=== PATIENT | female | born 1985 | race Caucasian/White ===

== ENCOUNTER 2017-05-02 15:30 | Outpatient (RCR) | payer OTHER, SELFPAY | END 2017-05-14 23:59 | LOC: NS 15:30 | PROVIDERS: Family Provider Internal Medicine; PCP Internal Medicine; Visit Provider Nurse Practitioner Family | DX: E66.9 Obesity, unspecified (principal); Z68.32 Body mass index [BMI] 32.0-32.9, adult; Z71.3 Dietary counseling and surveillance | CPT/HCPCS: 97803 ==

== ENCOUNTER 2017-05-26 15:56 | Outpatient (RCR) | payer OTHER, SELFPAY | END 2017-06-13 23:59 | LOC: NS 15:56 | PROVIDERS: Family Provider Internal Medicine; PCP Internal Medicine; Visit Provider Nurse Practitioner Family | DX: E66.9 Obesity, unspecified (principal); Z68.32 Body mass index [BMI] 32.0-32.9, adult; Z71.3 Dietary counseling and surveillance | CPT/HCPCS: 97803 ==

== ENCOUNTER → 2017-06-20 16:23 | Outpatient (CLI) | payer OTHER, SELFPAY ==
[2017-06-24 12:06] LABS: HPV Reflexed? NOT INDICATED
== END ==
PROVIDERS: Visit Provider Obstetrics & Gynecology
DX: Z12.4 Encounter for screening for malignant neoplasm of cervix (principal)
CPT/HCPCS: 88175; G0145

== ENCOUNTER 2017-06-30 15:30 | Outpatient (RCR) | payer OTHER, SELFPAY | END 2017-07-14 23:59 | LOC: NS 15:30 | PROVIDERS: Family Provider Internal Medicine; PCP Internal Medicine; Visit Provider Nurse Practitioner Family | DX: E66.9 Obesity, unspecified (principal); Z68.32 Body mass index [BMI] 32.0-32.9, adult; Z71.3 Dietary counseling and surveillance | CPT/HCPCS: 97803 ==

== ENCOUNTER → 2018-04-25 16:36 | Outpatient (CLI) | payer OTHER, SELFPAY ==
[2018-04-25 16:36] VITALS: BMI 32.9
--- NOTE | 2018-04-25 16:39 | RAD_ITS ---
STUDY: X-RAY - RIGHT ANKLE REASON FOR EXAM: Female, 32 years old. Pain, trauma TECHNIQUE: 3 view(s) of the ankle. COMPARISON: None. FINDINGS: There is mild soft tissue edema. There is a 6 mm rounded bony density inferior to the medial malleolus. There is a linear 2 mm small avulsion fracture inferior to the lateral malleolus. This is best seen on the oblique view. There is a accessory ossicle adjacent to the base of the fifth metatarsal. A small bony density adjacent to the navicular likely accessory navicular. RAD/Ankle min 3 Views IMPRESSION: Mild predominantly lateral soft tissue edema 6 mm rounded bony density inferior to the medial malleolus more likely old avulsion fracture and should be correlated clinically Linear 2 mm density inferior to the lateral malleolus best seen on the oblique view likely acute small avulsion fracture Electronically Signed: Bogdan Shipman, at 17:19 EDT Tel , Service support ,
== END ==
PROVIDERS: Family Provider Internal Medicine; PCP Internal Medicine; Referring Provider Physician Assistant Surgical; Visit Provider Physician Assistant Surgical
DX: S96.911A Strain of unspecified muscle and tendon at ankle and foot level, right foot, initial encounter (principal)
CPT/HCPCS: 73610

== ENCOUNTER 2018-05-22 15:30 | Outpatient (RCR) | payer OTHER, SELFPAY ==
[2018-05-08 15:00] VITALS: BMI 32.9
--- NOTE | 2018-05-09 15:59 | HP.PTEVAL_ITS ---
Patient's Visit Information FAROOQ LEE is a 32 year old F referred to Physical Therapy by Deangelo Dillon DO with a diagnosis of R lateral ankle sprain. Date of Evaluation: 05/09/18 Physical Therapist: Perfecto Bowen, PT, ATC - Visit Plan Frequency: 1x/Week Duration: 1 Week Plan: Issue and review HEP of R ankle stretching, strengthening, balance and prorio ex's - Subjective Findings: Pt reports she sprained her ankle 3 weeks ago when trying to catch a child at work. Pt reports she just rolled her R ankle and it popped really loud. Pt reports she had xrays which revealed a tiny little fracture, but mostly just a sprain. Pt reports she is doing much better now and has very little pain. Pt reports she is able to negotiate stairs both at work and school with no difficulty. Pt has sprained her ankle in the past. Pt reports she feels like she is rally almost healed. 0/10 pain at rest, 1/10 pain at worst - Pain R ankle Pain Intensity (Out of 10): 0 Pain Intensity Range: 1 - Objective Neuro: B LE sensation is WNL to light touch. B achilles reflex= 2/3. Palpation: Minor tenderness on tibiocalcaneal ligament. Minor swelling noted. No obvious deformity. ROM: L ankle DF= 4, PF= 65 degrees; R ankle DF= 4, PF= 65. MMT: B ankles are 5/5 throughout with the exception of R ankle Ever= 4+/5. Girth at malleolus line: L ankle 24 cm, R ankle 24.5 cm - Goals Goal 1:: I with HEP Goal Time Frame: 1 Week - Rehabilitation Potential Physical Therapy Diagnosis: R ankle pain from a R lateral ankle sprain Rehabilitation Potential: Excellent - Anticipated Interventions Patient/Client Instruction: Educate patient on: Condition, Plan of Care For the Purpose of:: To improve self management Therapeutic Exercise to Include: Strength training, Endurance training, Balance training, Flexibilty training For the Purpose of:: To decrease pain, To improve muscle performance and motor function Cryotherapy (ice pack, ice massage): Yes For the Purpose of:: To decrease pain Thank you for the opportunity to evaluate your patient. For Medicare and Medicare HMO plans, please review the plan of care and approve it. It will need to be FAXED BACK to us at [phone] for Medicare purposes. For Medicare only, by signing this I certify the plan of care. Please let me know if there are questions or concerns regarding this plan of care. Physician Signature: Date:
--- NOTE | 2018-05-22 15:52 | HP.PTDCSUM ---
HP - PT D/C Summary It has been my pleasure to treat FAROOQ LEE under orders from Deangelo Dillon DO, for the diagnosis of R lateral ankle sprain for a total of 2 visit(s). Discharge Date: Please see the following information for a summary of their discharge status. - Subjective Subjective: No pain this date. Pt is ready for a HEP - Pain R ankle Pain Intensity (Out of 10): 0 - Objective Objective/Function: Pt is now I with HEP - Goals Goal 1:: I with HEP Goal Progress: Goal Met - Plan Plan: Discharge - D/C Information If there are questions or concerns regarding this patient's physical therapy, please feel free to call me at [phone]. Thank you for the referral of this patient. Sincerely, Perfecto Bowen, PT, ATC
== END 2018-05-22 19:00 | disposition home or self-care (01) ==
LOC: PT 15:30
PROVIDERS: Family Provider Internal Medicine; PCP Internal Medicine; Referring Provider Orthopaedic Surgery; Visit Provider Orthopaedic Surgery
DX: S93.491D Sprain of other ligament of right ankle, subsequent encounter (principal)
CPT/HCPCS: 97161; 97530

== ENCOUNTER → 2018-10-24 17:09 | Outpatient (CLI) | payer OTHER, SELFPAY ==
[2018-07-25 14:11] VITALS: BMI 32.9
[2018-10-24 20:22] LABS: Chlamydia Trachomatis by PCR Negative (Negative); Neisserai gonorrhoeae by PCR Negative (Negative); Probe Check PASS; Sample Adequacy Control PASS; Specimen Processing Control PASS
== END ==
PROVIDERS: Family Provider Internal Medicine; PCP Internal Medicine; Referring Provider Obstetrics & Gynecology; Visit Provider Obstetrics & Gynecology
DX: Z11.3 Encounter for screening for infections with a predominantly sexual mode of transmission (principal)
CPT/HCPCS: 87491; 87591

== ENCOUNTER → 2018-11-14 16:24 | Outpatient (CLI) | payer OTHER, SELFPAY ==
[2018-07-25 14:11] VITALS: BMI 32.9
[2018-11-14 18:02] LABS: Absolute Lymphocyte Count 1.69 X10^3/uL (0.83-4.51); Absolute Neutrophil Count 7.1 X10^3/uL (2.0-7.7); Basophil# 0.03 X10^3/uL; Basophil% 0.3 % (0-1); Eosinophil# 0.07 X10^3/uL; Eosinophils% 0.7 % (0-5); Hematocrit 39.6 % (37-47); Lymphocyte # 1.69 X10^3/ul (4.0); Lymphocyte % 17.6 % (19-41); Mean Corp Hgb Conc 32.8 g/dL (32-36); Mean Corpuscular Hgb 29.4 pg (27.0-32.0); Mean Corpuscular Volume 89.6 fL (81-99); Mean Platelet Vol. 10.2 fl (6.2-12.0); Monocyte# 0.64 X10^3/uL; Monocyte% 6.7 % (0-10); NRBC Flagged by Analyzer 0 % (0-5); Neutrophil # 7.11 X10^3/uL (2.7-7.7); Neutrophil % 74.2 % (47-70); Platelet Count 381 K/mm3 (150-450); RBC Distribution Width CV 12.2 % (11.6-14.6); RBC Distribution Width SD 39.7 fl (35.1-43.9); Red Blood Count 4.42 M/mm3 (4.2-5.4); White Blood Count 9.6 K/mm3 (4.4-11.0)
[2018-11-14 18:03] LABS: Color, Urine Yellow (Yellow); Glucose, Dipstick Normal (Normal); Ketone-Dipstick Negative (Negative); Leukocyte Esterase-Dipstick 500 /ul (Negative); Nitrite-Dipstick Negative (Negative); Occult Blood-Urine Negative /ul (Negative); Protein-Dipstick 15 mg/dl (Negative); Specific Gravity, Urine 1.015 (1.002-1.030); Urine Bilirubin Dipstick Negative (Negative); Urine Clarity Sl. Cloudy (Clear); Urine Urobilinogen Normal (Normal)
[2018-11-14 18:22] LABS: Thyroid Stim Hormone (TSH) 0.61 uIU/mL (0.358-3.74)
[2018-11-15 10:15] LABS: HIV - WCH Non-Reactive (Nonreactive); Hepatitis B Surface Antigen Non-Reactive (Nonreactive); Hepatitis C Antibody Non-Reactive (Nonreactive); Rubella IgG 354.6 IU/mL
[2018-11-17 02:41] LABS: Prenatal RPR NONREACTIVE (NONREACTIVE)
== END ==
PROVIDERS: Visit Provider Obstetrics & Gynecology
DX: Z34.81 Encounter for supervision of other normal pregnancy, first trimester (principal)
CPT/HCPCS: 36415; 81002; 84443; 85025; 86703; 86762; 86803; 87340

== ENCOUNTER → 2018-12-12 16:13 | Outpatient (CLI) | payer OTHER, SELFPAY ==
[2018-07-25 14:11] VITALS: BMI 32.9
[2018-12-16 12:06] LABS: Comment Report (.); DIA MoM Value 1.34 (.); DIA Value-EIA 192.65 pg/mL (.); DSR (By Age) 256 (.); DSR (Second Trimester) 94 (.); Gestat. Age Based On As provided (.); Gestational Age 15.3 WEEKS (.); Insulin Dep Diabetes No (.); Maternal Age At EDD 35.7 yr (.); hCG MoM 1.26 (.)
== END ==
PROVIDERS: Visit Provider Obstetrics & Gynecology
DX: Z34.82 Encounter for supervision of other normal pregnancy, second trimester (principal)
CPT/HCPCS: 36415; 82105; 82677; 84702

== ENCOUNTER → 2019-03-05 11:23 | Outpatient (CLI) | payer OTHER, SELFPAY ==
[2018-07-25 14:11] VITALS: BMI 32.9
[2019-03-05 12:28] LABS: Hematocrit 37.5 % (37-47); Hemoglobin 12.1 g/dL (12.0-15.0); Mean Corp Hgb Conc 32.3 g/dL (32-36); Mean Corpuscular Hgb 28.3 pg (27.0-32.0); Mean Corpuscular Volume 87.8 fL (81-99); Mean Platelet Vol. 10.1 fl (6.2-12.0); Platelet Count 366 K/mm3 (150-450); RBC Distribution Width CV 13.2 % (11.6-14.6); RBC Distribution Width SD 42.5 fl (35.1-43.9); Red Blood Count 4.27 M/mm3 (4.2-5.4); White Blood Count 10.6 K/mm3 (4.4-11.0)
[2019-03-05 12:33] LABS: Glucose Challenge Gest 1H 50g 141 mg/dL (70-140)
== END ==
PROVIDERS: Visit Provider Obstetrics & Gynecology
DX: Z34.82 Encounter for supervision of other normal pregnancy, second trimester (principal)
CPT/HCPCS: 36415; 82950; 85027

== ENCOUNTER → 2019-03-08 06:59 | Outpatient (CLI) | payer OTHER, SELFPAY ==
[2018-07-25 14:11] VITALS: BMI 32.9
[2019-03-08 07:35] LABS: Glucose GTT-Gestation. Fasting 102 mg/dL (<105)
[2019-03-08 08:59] LABS: Glucose GTT-Gestational 1 Hr 194 mg/dL (<190)
[2019-03-08 10:20] LABS: Glucose GTT-Gestational 2 Hr 141 mg/dL (<165)
[2019-03-08 11:25] LABS: Glucose GTT-Gestational 3 Hr 76 L (<145)
== END ==
PROVIDERS: PCP Internal Medicine; Referring Provider Obstetrics & Gynecology; Visit Provider Obstetrics & Gynecology
DX: O24.912 Unspecified diabetes mellitus in pregnancy, second trimester (principal); Z3A.00 Weeks of gestation of pregnancy not specified
CPT/HCPCS: 36415; 82951; 82952

== ENCOUNTER → 2019-05-09 11:06 | Outpatient (CLI) | payer OTHER, SELFPAY ==
[2019-04-17 08:45] VITALS: BMI 32.9
== END ==
PROVIDERS: PCP Internal Medicine; Visit Provider Obstetrics & Gynecology
DX: Z36.85 Encounter for antenatal screening for Streptococcus B (principal)
CPT/HCPCS: 87081

== ENCOUNTER 2019-05-30 05:58 | Inpatient (IN) | payer OTHER, SELFPAY ==
[2019-04-17 08:45] VITALS: BMI 32.9
[2019-05-30] VITALS (22 sets, daily range): BP systolic 114–160; BP diastolic 66–88; PULSE 67–173; RESP 14–18; TEMP 35.8–36.9; O2SAT 89–98; BMI 37.9
[2019-05-30] MEDS: Lactated Ringers 1,000 ML 50 ML IV (06:05)
--- NOTE | 2019-05-30 06:10 | HP.PCM_ITS ---
- Problem List (1) 39 weeks gestation of Status: Acute (2) Spontaneous onset of labor Status: Acute History and Physical Date of Admission: 05/30/19 ACOG ANTEPARTUM RECORD - HISTORY AND PHYSICAL (05/30/2019) Name: ALEXANDRA ARREGUIN OB Physician: ADRIANO 's Physician: Dr. Niru Lpoez ...................................................................... : 1985 Age: 33 Address: [address] [place] [address] Phone: (h) [phone] (o) [phone] Insurance Carrier: [facility] [id number] Emergency Contact: CYNTHIA JESUS/ [phone] ...................................................................... Final TAMELA: 06/03/19 By Ultrasound: 11 weeks 2 days PARITY: (G-Total Pregnancies P-Fullterm,Premature,Induced AB,Spont AB, Ectopics, Multiple,Living) TAMELA CONFIRMATION: By LMP: 08/27/18 Initial Exam: 06/04/19 By First Ultrasound Exam: 06/03/19 Final TAMELA: 06/03/19 OB PROBLEM LIST: Abn MSAFP inc DSR (normal cell free DNA test though) Declines CF. Wants AFP. MSAFP with inc risk of Down Syndrome Cell free DNA is WNL. 46XX ALLERGIES: NKDA MEDICATIONS: + DHA 28 mg iron- 975 mcg-200 mg combo pack 1 daily Zofran 4 mg tablet 1 po q 6 hr prn N/V Zoloft 50 mg tablet 1 pill by mouth once a day SOCIAL HISTORY: Smoking - Never Alcohol Use - occasionally not while Diet - balanced Diet, caffeine < 2 drinks per day and Water intake tries for 3 liters Lifestyle - low stress lifestyle Exercise - Was exercising 4-7 d/w [employer] Now less but will resume. 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 Illicit Drug Use - denies use of street drugs Sexual Activity - single sexual partner and Residence - owns a home Place of - [place] Hours Worked - 40-45 Spouse-Sig Other Name - Cynthia Arreguin Spouse-Sig Other Occupation - Teacher/Coordinates Mental Health Services [employer] Spouse-Sig Other Phone No - [phone] Children Name(s) - Anil Webb PRIOR DELIVERY HISTORY DEL DATE GEST LAB WT LB WT OZ TYPE ANES LABOR TX 01 Apr 16 4 0 0 0 Vag None No Jan 26 38 25 8 11 Vag Epidural No Apr 02 39 8 8 9 Vag Epidural No ANTEPARTUM FLOW CHART VISIT RTC FU F F IL U U DATE WK MD WKS HT PN HR M SS BP ED WT IL GL D EF ST __ ____ ___ __ __ ___ __ __ __ ___ __ __ __ ___ __ 07 May SHM 1 37 V + de 130/82 sl 243 tr - 4 75 -2 25 Apr 36 CH + + 110/80 0 237 tr - 02 Apr 33 CH 2 34 V + ++ 104/70 sl 237 ne ne 17 Mar 31 CH 2 33 V + + 120/70 0 233 03 Mar 29 CH 2 29 + ++ 114/60 0 233 ne ne Mar 12 CH 2 28 + + 104/66 0 231 tr - 23 Feb 05 ELB 4 23 - + + 124/68 0 222 - - Jan 02 ELB 4 - - U+ + 110/80 0 219 - - 29 Nov 28 ELB 4 - - + ? 110/70 215 tr - Nov 24 ELB 4 - - U+ O 124/64 0 211 - - ANTEPARTUM NOTE(S): May 22 2019: wants cervix ck and NST today May 08 2020: see note Apr 15 2020: doing well Apr 02 2020: feeling well. Mar 19 2019: doing well Mar 05 2020: Feb 05 2019: Jan 09 2019: see note Dec 12 2018: feeling better Nov 14 2019: COMPREHENSIVE ANTEPARTUM NOTE(S): May 22 2019: Relates mvmt slightly different perhaps decreased but wonders if this is just from size. NST today for reassurance. LMT May 22 2019: NST for jan FM reactive, cat I FHR. [place] 3-4 movements over approx 30 min. Movement precautions reviewed. Consider IOL if undelivered next week. May 16 2019: Tele appt today due to Covid-19 precautions. 37wk gest. GBS negative. Reports +FM. BP at home is 117/86 and 102/78. Wants to know if needing to wear mask in labor. Advised current policy is a homemade mask will be given to her and her just while pushing since it is considered aerolizing. If coming to the hospital after 7pm weekdays or 5pm weekends will need to use ER entrance since doors are closed. Has no other questions or concerns. Wants to be seen next week for SVE and membrane sweeping. To call with s/s of labor. 11 minutes spent on phone - May 14 2019: H taken to OB. tkg May 09 2019: Alexandra is being seen for nurse visit. Pt to have GBS and LARC today. FHR on doppler present per pt request. Esthela to call pt for pnv. AM May 09 2019: Stopped into the office today to leave GBS, urine, BP, and weight. Heart rate in office today. Tele appt follow up with provider today due to Covid-19 precautions. Reports feeling well with good FM. Understands Covid-19 precautions and advised when to call. Has not had any symptoms since being in contact with her sick principal. We are offering video/phone messages for all women in the last month if she has a BP cuff at home. If unable to get BP at home we are recommending weekly appts in the final month for surveillance. At this time no elective inductions and hospital protocols reviewed. To call with decreased FM, ROM, bleeding or regular UC. Appt in 1 week will be telehealth with BP cuff at home. Reviewed office still being open and nurse triage line with provider senior electrical controls engineer 06/09. 11 minutes spent on the phone. - May 01 2019: Tele appt today due to Covid-19 precautions. Reports feeling well with good FM. Reports being at work until yesterday. Her principal was in contact with the principals who were tested positive. Her principal was given the okay to be at work if he stayed 6 feet away from people, but yesterday they were in close contact. After he went home sick, but reports having more stomach issues and isn't concerned with Covid-19. Reviewed signs and symptoms, to take temperature and to call with any concerns. Has been having some dizziness, but admits to not being hydrated enough. Has compression socks at home that she will start wearing. Will call if worsens. Understands Covid-19 precautions and hospital restrictions. Reviewed appt in 1 week will be tele as well, but will come in to do GBS swab followed by tele appt with provider. Reviewed the nurse triage line and provider are still available 06/09 for any questions for concerns. 13 minutes spent on the phone. - Apr 16 2019: Routine PNV. FHR 140. FM+. Feeling well with no questions or concerns. GBS education given and swab at 36 weeks with weekly visits starting then. To call with signs of labor including ROM, regular UC or bleeding. - Apr 02 2019: Routine PNV. Reports +FM. FHR 140. Has no questions or concerns today. Asked about when I thought baby would come since first son was 10 days early and second was 5 days early. No way to really tell, but can do SVE at term. Reviewed signs of labor and when to call. To return in 2 weeks for routine PNV. - Mar 19 2019: (m,m,f*) Reviewed third trimester labs. Had failed 1hr GTT, but passed 3h GTT. Is feeling well and reports +FM. FHR 130. Reviewed normal FM at this point and if ever feeling decreased normal movements to do proper kick counts of 4 movements in 1 hour or 10 in 2 hours. Reports mary horner that feel like mild period cramps only. Discussed rest and increased hydration. Will return in 2 weeks for routine PNV. - Mar 05 2019: (m,m,f*) Here for routine PNV. 3rd trimester labs drawn today. Will start every 2 weeks appts. FM+. FHR 152. Last had to do 3 hour GTT. Discussed IV pain medication and nitrous oxide while in labor. Wants to maybe try not getting the epidural. Doesn't want cut, but allowed to naturally tear. Will return in 2 weeks to see KW. - Feb 05 2019: Doing well. Good FM. Glucola bottle and instructions given to be done next visit. [facility] Jan 09 2019: Alexandra is being seen for PNV. Pt is feeling well. She states that she felt as if she was going to pass out at one point today. She states she has felt like she was going to pass out in prior pregnancies. AM Nov 15 2018: O positive. Rubella immune. Hgb 13.0 g/dl. Hepatitis testing NEG. EB Nov 14 2018: Feeling well; denies cramping, VB, LOF; consistent nausea, improving, Zofran did not help, declines Phenergen; US to confirm dates, NOB and blood draw done today; discussed warning signs, s/s PTL; RTO 4 weeks for PNV, MSAFP and CF screening - KVW Nov 14 2018: Alexandra is here for NOB nurse visit with TAMELA 06-03-19 planning a vag del w epidural at [facility] with Dr Kendal Lopez as ped care post discharge and to breastfeed. Alexandra is a G 4 P 2 with two and six y old sons at home. 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 Her is a teacher/ mental health disabilities services officer at [employer]. They are pleased about the pg. Alexandra would like a girl but is fine with either gender. She has an allergy to cats but NKA to meds, food, latex or the environment. Her diet is balanced w no caffeine and several liters of water daily. She was working out almost daily but has decreased due to NVP but is starting to feel better and plans to resume. She is a lifetime non smoker, drinks alcohol occ but not in pg and denies street drug use. Genetics Screening form completed noting second child with craniosynostosis requiring several surgeries. She wants AFP but declines CF. Warning signs in pg reviewed as well as importance of protein in diet, wearing her seatbelt low on her abd, lifting restriction of 20-25#, reaching the office after hours with understanding voiced. She has a copy of What to Expect. US done. Routine labs drawn. She's had chickenpox and they have no cats. Flu shot encouraged. Enc to call w any concerns. No classes needed. Nursed 18 and 20 months successfully. Visit took approx 45 min. Christopher CORONEL. NEW Oct 25 2018: Cervical cultures NEG. EB Oct 24 2018: Here for confirmation of appt. Thrid . Positive UPT in ofc today. EB Oct 24 2018: Alexandra is a 33 yr old Gr 4, P2, SAB 1 here for Missed Menses. By LMP7, she would be 8 wks 2 days, TAMELA 06/04/19. She is and lives w/ and their 2 sons. Reporting feeling queezy all day, no vomiting. Offered anti nausea med, but she declines stating she is eating and drinking without any problems.Offered Vit B 6 and Unisom w/Doxylamine. No constipation. For the past 10 days she has been having light spotting noted once daily varying from pink to red to brown. Denies any cramping. Advised NO IC for now. Hx x 2 prior. Hx Cholecystectomy. Non -Smoker. Continues on Zoloft 50mg taking this for Anxiety given by her PCP. Not due for pap. GC/Chlamydia culture obtained. Pregnany informational materials given and reviewed otc meds ok to take. NO NSAIDSs. kbm Sep 18 2018: Here for annual. Pap not due this year. EB Sep 18 2018: Alexandra is here for annual exam. She is doing well, no complaints. No longer . Menses monthly and regular. She is attempting and on PNV. Pap is not due until 2020. LMT Aug 15 2018: Here for annual. Pap due in 2020. Has been on progesterone only OCP, Miesha-B Mammogram by 40 yr old. EB REVIEW OF SYSTEMS: GENERAL - Denies fever, or chills SKIN - Denies rash, new skin lesions, or change in moles EYES - Denies blurred vision, or change in visual acuity EARS - Denies ear pain, or difficulty hearing NOSE - Denies nasal congestion, discharge, or bleeding MOUTH - Denies sore throat, or difficulty swallowing NECK - Denies pain or swelling RESPIRATORY - Denies shortness of breath, cough, wheezing CARDIOVASCULAR - Denies palpitations, chest pain, orthopnea, PND, peripheral edema, syncope or claudication GASTROINTESTINAL - Denies nausea, vomiting, diarrhea, constipation, Denies abdominal pain, melena and or bright red blood GENITOURINARY - Denies dysuria, frequency of urination, urgency, or hesitancy MUSCULOSKELETAL - Denies joint or muscle pain, or back pain NEUROLOGICAL - Denies localized numbness, weakness, or tingling PSYCHIATRIC - Denies depression, anxiety, substance abuse or suicide attempts ENDOCRINE - Denies heat or cold intolerance, weight loss or gain, increasing thirst HEMATO-IMMUNOLOGIC - Denies easy bruising, bleeding, oral ulcerations or recurrent infections GENETICS SCREENING: Age 35+ years: No Thalassemia: No Neural Tube Defect: No Down Syndrome: No BRYAN-SACHS: No Sickle Cell Disease: No Hemophilia: No Musc. Dystrophy: No Cystic Fibrosis: No Christina Chorea: No Mental Retardation: No Fragile X: No Other genetic: No Other defects: No SABs/still births: No Drugs since LMP: Yes INFECTION HISTORY: High risk AIDS: No High risk Hepatitis: No Exposed to TB: No Exposed to Herpes: No Rash/viral illness since LMP: No History of STD: No MENSTRUAL HISTORY: *Menses Amount/Duration: 5Menses Regularity: RegularMenarche (Age Onset): 11* PAST SUMMARY: PARITY: 1. Total Pregnancies............ 4 2. Full Term Pregnancies........ 2 3. Premature.................... 0 4. Abortions - Induced.......... 0 5. Abortions - Spontaneous...... 1 6. Ectopics..................... 0 7. Multiple Births.............. 0 8. Living Children.............. 2 PAST #1: Date of :.................. [birth year] Gestation Weeks:................ 38 Length of labor(hours):......... 25 Sex:............................ M Weight-lbs:............... 8 Weight-oz:................ 11 Type of Delivery:............... Vag Type of Anesthesia:............. Epidural Place of Delivery:.............. [place] Treatment of Labor?:.... No Comment: NO PAST #2: Date of :.................. 04/15/15 Gestation Weeks:................ 4 Length of labor(hours):......... 0 Sex:............................ UNKNOWN Weight-lbs:............... 0 Weight-oz:................ 0 Type of Delivery:............... Vag Type of Anesthesia:............. None Place of Delivery:.............. [place] Treatment of Labor?:.... No Comment: SAB PAST #3: Date of :.................. 04/12/16 Gestation Weeks:................ 39 Length of labor(hours):......... 8 Sex:............................ M Weight-lbs:............... 8 Weight-oz:................ 9 Type of Delivery:............... Vag Type of Anesthesia:............. Epidural Place of Delivery:.............. [place] Treatment of Labor?:.... No Comment: PHYSICAL EXAMINATION General Appearence: 33 yo female in no acute distress Vital Signs: AF, VSS Heart: RRR without rubs or gallops Lungs: CTA x 2 Breasts: deferred Abdomen: gravid Pelvis: Cervix: 9.5/90 Presentation: cephalic Station: 0 Fetus: Size: AGA Movement: present Heart: present Impression /Plan: Intrauterine . Preparations in progress for delivery.
[2019-05-30 06:25] LABS: Absolute Neutrophil Count 8.1 X10^3/uL (2.0-7.7); Basophil# 0.06 X10^3/uL; Basophil% 0.5 % (0-1); Eosinophil# 0.12 X10^3/uL; Eosinophils% 1.1 % (0-5); Hematocrit 40.8 % (37-47); Hemoglobin 13.5 g/dL (12.0-15.0); Lymphocyte % 19.3 % (19-41); Mean Corp Hgb Conc 33.1 g/dL (32-36); Mean Corpuscular Hgb 27.7 pg (27.0-32.0); Mean Corpuscular Volume 83.6 fL (81-99); Mean Platelet Vol. 10.7 fl (6.2-12.0); Monocyte# 0.81 X10^3/uL; Monocyte% 7.1 % (0-10); NRBC Flagged by Analyzer 0 % (0-5); Neutrophil # 8.14 X10^3/uL (2.7-7.7); Neutrophil % 71.2 % (47-70); Platelet Count 376 K/mm3 (150-450); RBC Distribution Width CV 14.4 % (11.6-14.6); RBC Distribution Width SD 43.4 fl (35.1-43.9); Red Blood Count 4.88 M/mm3 (4.2-5.4); White Blood Count 11.4 K/mm3 (4.4-11.0)
[2019-05-30] MEDS: Oxytocin 30 units/NS 500 ml 30 UNITS/500 ML IV.SOLN 334 UNITS IV (06:50)
--- NOTE | 2019-05-30 07:00 | OP.PCM_ITS ---
Problem List (1) 39 weeks gestation of Status: Acute (2) Spontaneous onset of labor Status: Acute Vaginal Delivery Maternal Presentation: Active Labor Amniotic Membrane Rupture Type: Artificial - at time of pushing Amniotic Fluid Description: Clear Final TAMELA: 06/03/19 Final TAMELA Source: US <20 weeks Gestational age: 39 Weeks and 3 Days Date of Procedure: 05/30/19 Pre-Operative Diagnosis: Spontaneous Labor Post-Operative Diagnosis: S/P Surgery/ Procedure Performed: Spontaneous Vaginal Delivery Type of Anesthesia: Local with 1% lidocaine Description of Procedure: Patient had spontaneous urge to push and 9.5/90/0. Cervix was able to retract with one push. Patient pushed well to deliver head in OA to THELMA. Body delivered after 25 seconds with traction given by CNM in Ricardo position. Snug shoulders noted with body followed by terminal meconium. The female infant was placed on the maternal abdomen and further attended by nursery personnel wi th bulb suction and stimulation. The cord was doubly clamped then cut by FOB with CNM supervision at approximately 1 minute of life. Cord blood collected. IV Pitocin started per protocol. With gentle cord traction spontaneous delivery of placenta. Fundal massage given and with constant trickle, manual expression of small clots from uterus and Pitocin to 999mL for 15 minutes. Fundus, firm and midline. Second degree perineal laceration noted and repaired with a 3.0 rapide double after localized injection of lidocaine 1%. Good hemostasis noted. EBL 250. Sponge and needle count correct x2. Apgars 8/9. Presentation: Vertex, THELMA Placental Delivery Description: Spontaneous Placenta Disposition: [facility] Cord Vessel Description: 3 Vessels Cord Entanglement: None Estimated Blood Loss: 250 Infant A gender: Female (1 minute): 8 (5 minute): 9 Episiotomy Description: None Laceration: Perineal Extension/lac, 2nd degree Medications given after delivery: IV Pitocin
[2019-05-30] MEDS: Ibuprofen 600 MG Tablet PO ×2 (08:29→18:37)
--- NOTE | 2019-05-30 21:01 | DCINST_ITS ---
Discharge Diet: No Restrictions Discharge Activity: Return to Normal Activity, May not drive while taking narcotic pain medications., May Shower May resume sexual activity in: 4-6 weeks Additional Activity Instructions:: Nothing in the vagina for 4-6 weeks. You may return to work/school in 6 weeks. Call your doctor if your incision/area has: Continuous Slow Oozing, Sudden Increased Bleeding, Increased Pain/ Swelling, Increased Redness, Foul Smelling Discharge Additional Instructions: If you experience any of the following, contact your healthcare provider. * Bleeding that soaks a pad every hour for 2 hours * Fever 100.4 or higher * Unrelieved incision or abdominal pain * Swelling, redness, discharge or bleeding from your incision or episiotomy site * Your incision begins to separate * Problems urinating (including inability to urinate or burning while urinating). * Visual changes * Severe headache * Flu-like symptoms * Pain or redness in one of both of your breasts * Pain, warmth, tenderness or swelling in your legs, especially the calf area * Frequent nausea and vomiting * Symptoms of depression or anxiety If you experience any of the following, call 911 or go to the nearest Emergency Room. * Chest pain * Problems breathing * Seizure activity * Partial or complete paralysis of a body part, slurred speech, weakness or drooping of the face, or a sudden inability to walk or hold your balance Allergies/Adverse Reactions: Allergies No Known Allergies Allergy (Verified 05/30/19 06:15) Medications to take at Discharge Vit No.130/Iron/Folic [ Tablet] 1 tab PO DAILY 05/30/19 Sertraline HCl 50 mg PO QDAY 05/30/19 Please Follow Up With: Esthela Parish CNM When: Call to make a 2 week telehealth visit and a 6 week PP visit with your TAEM Primary Care Physician: Tiffanie Hou MD [Primary Care Provider] - Test Results: Test results from this visit will be discussed in further detail at your follow- up appointment, if applicable.
[2019-05-30] MEDS: Sertraline 50 MG Tablet PO (21:50)
[2019-05-31] VITALS (7 sets, daily range): BP systolic 116–123; BP diastolic 70–82; PULSE 68–77; RESP 14–16; TEMP 36.3–36.9
--- NOTE | 2019-05-31 08:22 | PCM.PN.OB ---
Patient Problems: Active and Suspected Problems (Last Reviewed 04/17/19 @ 07:11 by Zoya Rodrigues) 39 weeks gestation of (Acute) Spontaneous onset of labor (Acute) Subjective: Feeling really good. Denies pain, heavy bleeding or concerns. Objective: VSS. Fundus, firm, midline, u/2. Lochia rubra light. Vaginal laceration without signs of infection. - Physical Exam Vitals/I&O's: Vital Signs Temp Pulse Resp BP Pulse Ox 97.5 F L 68 16 121/70 H 95 05/31/19 07:26 05/31/19 07:24 05/31/19 04:46 05/31/19 07:24 05/30/19 09:11 Oxygen Delivery Method Room Air Weight: 109.769 kg Body Mass Index (BMI) 37.9 Intake and Output for Last 24 Hours 05/29/19 05/30/19 05/31/19 23:59 23:59 23:59 Intake Total 537.5 / 537.5 500 / 500 Output Total 400 / 400 Balance 137.5 / 137.5 500 / 500 General: Alert, Oriented x3, Cooperative HEENT: Atraumatic, PERRLA, EOMI, Normocephalic Neck: Supple, No JVD, Negative Carotid Bruits Lungs: Clear to auscultation, Normal air movement Cardiovascular: Regular rate, No murmurs Abdomen: Bowel Sounds Present, Soft, Non Tender Extremities: No edema, Capillary Refill Less than 3 Seconds Skin: No rashes, No breakdown Musculoskeletal: No Tenderness to Palpation of Joints or Extremities Neurological: Cranial nerves II-XII grossly intact Psych/Mental Status: Normal Affect, Appropriate Current Medications Acetaminophen (Tylenol) 1,000 mg PO Q8H PRN PRN PRN Reason: Pain Score 1-3/10 Bisacodyl (Dulcolax) 10 mg RECTAL UD PRN PRN Reason: If no BM Hydrocortisone (Hytone) 1 applic TOPICAL TID PRN PRN; Protocol PRN Reason: Discomfort Ibuprofen (Motrin) 600 mg PO Q6H PRN PRN PRN Reason: Pain Score 1-3/10 Last Admin: 05/30/19 18:37 Dose: 600 mg Documented by: Methylergonovine Maleate (Methergine) 0.2 mg IM X1 PRN PRN Reason: Excess bleeding/uterine atony Ondansetron HCl (Zofran) 4 mg IV Q4H PRN PRN PRN Reason: Nausea Oxycodone HCl (Oxyir) 5 - 10 mg PO Q4H PRN PRN PRN Reason: Pain Score 4-10/10 Senna/Docusate Sodium (Senokot-S, Dolores-Colace) 1 - 2 tablet PO DAILY PRN PRN PRN Reason: Constipation Sertraline HCl (Zoloft) 50 mg PO QHS [facility] Last Admin: 05/30/19 21:50 Dose: 50 mg Documented by: Simethicone (Mylicon) 80 mg PO PCHS PRN PRN Reason: Indigestion/Stomach pain Sodium Chloride () 5 - 15 ml IV UD PRN PRN Reason: SALINE FLUSH Throat Lozenges (Dermoplast (Sp)) 1 applic TOPICAL 4X/DAY PRN PRN; Protocol PRN Reason: Pain/Inflammation Medical Necessity - Tobacco Use Smoking Status: Never smoker Assessment/Plan All Active Problems (Last Reviewed 04/17/19 @ 07:11 by Zoya Rodrigues) 39 weeks gestation of (Acute) Spontaneous onset of labor (Acute) Conjunctivitis (Acute) Right ankle sprain (Acute) Frequent headaches (Acute) Shingles (Acute) A: Post-vaginal delivery day #1 daughter well with slightly cracked nipples Normal involution and course P: Lanolin breast ointment prn and Adjusted Nipple Ointment Rx called in to [facility] pharmacy Educated on normal course To call for 2 week telehealth PP visit and a 6 week regular PP visit considering vasectomy for PP contraception Dyad stable and to discharge home today
== END 2019-05-31 10:30 | disposition home or self-care (01) | DRG 807 ==
LOC: WPOUT 05:59 → WP 05:59
PROVIDERS: Admitting Provider Obstetrics & Gynecology; PCP Internal Medicine; Referring Provider Obstetrics & Gynecology; Visit Provider Obstetrics & Gynecology
DX: O70.1 Second degree perineal laceration during delivery (principal); Z37.0 Single live birth; O77.0 Labor and delivery complicated by meconium in amniotic fluid; Z3A.39 39 weeks gestation of pregnancy; Z90.49 Acquired absence of other specified parts of digestive tract; F41.9 Anxiety disorder, unspecified; O99.344 Other mental disorders complicating childbirth
CPT/HCPCS: 59025; 59050; 85025; 86850; 86900; 86901; 99218; J7120; G0378

== ENCOUNTER → 2019-06-03 12:00 | Outpatient (CLI) | payer OTHER, SELFPAY ==
[2019-05-30 06:13] VITALS: BMI 37.9
== END ==
PROVIDERS: PCP Internal Medicine; Referring Provider Obstetrics & Gynecology; Visit Provider Obstetrics & Gynecology
DX: O92.6 Galactorrhea (principal)
CPT/HCPCS: 96158

== ENCOUNTER → 2019-12-07 16:07 | Outpatient (CLI) | payer OTHER, SELFPAY ==
[2019-12-07 15:43] VITALS: BMI 34.1
[2019-12-07 17:17] LABS: Absolute Lymphocyte Count 2.05 X10^3/uL (0.83-4.51); Absolute Neutrophil Count 4.4 X10^3/uL (2.0-7.7); Basophil# 0.05 X10^3/uL; Basophil% 0.7 % (0-1); Eosinophil# 0.18 X10^3/uL; Eosinophils% 2.5 % (0-5); Hematocrit 40.9 % (37-47); Lymphocyte # 2.05 X10^3/ul (4.0); Mean Corp Hgb Conc 31.8 g/dL (32-36); Mean Corpuscular Hgb 28.2 pg (27.0-32.0); Mean Corpuscular Volume 88.7 fL (81-99); Mean Platelet Vol. 10.3 fl (6.2-12.0); Monocyte# 0.59 X10^3/uL; Monocyte% 8.1 % (0-10); NRBC Flagged by Analyzer 0 % (0-5); Neutrophil # 4.44 X10^3/uL (2.7-7.7); Neutrophil % 60.6 % (47-70); Platelet Count 409 K/mm3 (150-450); RBC Distribution Width CV 12.4 % (11.6-14.6); Red Blood Count 4.61 M/mm3 (4.2-5.4); White Blood Count 7.3 K/mm3 (4.4-11.0)
[2019-12-07 17:46] LABS: ALB/GLOB Ratio 1.1 RATIO (0.9-2.4); AST(SGOT) 17 U/L (15-37); Alanine Aminotransfer ALT/SGPT 35 U/L (13-56); Alkaline Phosphatase 120 U/L (45-117); Anion Gap 4 (5-15); BUN 15 mg/dL (7-18); BUN/Creat Ratio 19.1 RATIO (10-20); Calcium,Total 9.4 mg/dL (8.5-10.1); Chloride 107 mmol/L (98-107); Cholesterol 155 mg/dL (200); Creatinine, Serum 0.79 mg/dL (0.55-1.02); EST Glomerular Filtration Rate 88 mL/min (>60); Est Glom Filt Rate - Afr Amer 106 mL/min (>60); Globulin 3.8 g/dL (2.2-4.2); Glucose 120 mg/dL (74-106); High Density Lipoprotein 56 mg/dL; Potassium 4.5 mmol/L (3.5-5.1); Protein, Total 7.8 g/dL (6.4-8.2); Sodium Level 140 mmol/L (136-145); Thyroid Stim Hormone (TSH) 1.02 uIU/mL (0.358-3.74); Triglycerides 140 mg/dL; Very Low Density Lipoprotein 28 mg/dL (5-40)
== END ==
PROVIDERS: PCP Internal Medicine; Referring Provider Nurse Practitioner Family; Visit Provider Nurse Practitioner Family
DX: Z00.00 Encounter for general adult medical examination without abnormal findings (principal)
CPT/HCPCS: 36415; 80053; 80061; 84443; 85025

== ENCOUNTER → 2020-10-16 10:10 | Outpatient (CLI) | payer OTHER, SELFPAY ==
[2020-10-16 11:28] LABS: Mucous, Urine 0 SEEN /hpf (<or=2+); Red Blood Cells-Urine 0 SEEN /hpf (0-5)
[2020-10-16 12:12] LABS: Absolute Lymphocyte Count 1.57 X10^3/uL (0.83-4.51); Basophil# 0.06 X10^3/uL; Basophil% 0.9 % (0-1); Eosinophil# 0.22 X10^3/uL; Eosinophils% 3.4 % (0-5); Hematocrit 40.5 % (37-47); Hemoglobin 13.2 g/dL (12.0-15.0); Lymphocyte # 1.57 X10^3/ul (0.83-4.51); Lymphocyte % 24.5 % (19-41); Mean Corp Hgb Conc 32.6 g/dL (32-36); Mean Corpuscular Hgb 28.5 pg (27.0-32.0); Mean Corpuscular Volume 87.5 fL (81-99); Monocyte# 0.51 X10^3/uL; NRBC Flagged by Analyzer 0 % (0-5); Neutrophil # 4.03 X10^3/uL (2.7-7.7); Neutrophil % 62.9 % (47-70); Platelet Count 435 K/mm3 (150-450); RBC Distribution Width CV 12.5 % (11.6-14.6); RBC Distribution Width SD 39.8 fl (35.1-43.9); Red Blood Count 4.63 M/mm3 (4.2-5.4); White Blood Count 6.4 K/mm3 (4.4-11.0)
[2020-10-16 12:14] LABS: Color, Urine Yellow (Yellow); Glucose, Dipstick Normal (Normal); Ketone-Dipstick 5 mg/dl (Negative); Leukocyte Esterase-Dipstick 100 /ul (Negative); Nitrite-Dipstick Negative (Negative); Occult Blood-Urine Negative /ul (Negative); Protein-Dipstick Negative (Negative); Specific Gravity, Urine 1.015 (1.002-1.030); Urine Bilirubin Dipstick Negative (Negative); Urine Clarity Clear (Clear); Urine Urobilinogen Normal (Normal)
[2020-10-16 12:30] LABS: Amorphous Sediment 2+; Bacteria 1+ /hpf (None Seen); Squamous Epithelial Cells - UA 0-5 SEEN /hpf (5-10); White Blood Cells 0-5 SEEN /hpf (0-5)
[2020-10-16 12:59] LABS: AST(SGOT) 32 U/L (15-37); Alanine Aminotransfer ALT/SGPT 56 U/L (13-56); Albumin, Serum 3.8 g/dL (3.2-5.0); Alkaline Phosphatase 100 U/L (45-117); Anion Gap 5 (5-15); BUN 16 mg/dL (7-18); BUN/Creat Ratio 29.5 RATIO (10-20); Chloride 106 mmol/L (98-107); Cholesterol 152 mg/dL (200); Creatinine, Serum 0.54 mg/dL (0.55-1.02); EST Glomerular Filtration Rate 134 mL/min (>60); Est Glom Filt Rate - Afr Amer 162 mL/min (>60); Globulin 3.8 g/dL (2.2-4.2); Glucose 88 mg/dL (74-106); High Density Lipoprotein 52 mg/dL; Potassium 4.4 mmol/L (3.5-5.1); Protein, Total 7.6 g/dL (6.4-8.2); Sodium Level 139 mmol/L (136-145); Thyroid Stim Hormone (TSH) 1.13 uIU/mL (0.358-3.74); Triglycerides 246 mg/dL; Very Low Density Lipoprotein 49 mg/dL (5-40)
[2020-10-21 23:26] LABS: HPV Reflexed? NOT INDICATED
== END ==
PROVIDERS: Physician Assistant; PCP Internal Medicine; Visit Provider Obstetrics & Gynecology
DX: Z12.4 Encounter for screening for malignant neoplasm of cervix (principal); F41.9 Anxiety disorder, unspecified; F32.9 Major depressive disorder, single episode, unspecified; K62.5 Hemorrhage of anus and rectum; Z13.6 Encounter for screening for cardiovascular disorders; Z13.220 Encounter for screening for lipoid disorders
CPT/HCPCS: 36415; 80053; 80061; 81001; 84443; 85025; 88175; G0145

== ENCOUNTER → 2020-11-07 10:31 | Outpatient (CLI) | payer OTHER, SELFPAY | PROVIDERS: PCP Internal Medicine; Referring Provider Physician Assistant; Visit Provider Physician Assistant | DX: K62.5 Hemorrhage of anus and rectum (principal) | CPT/HCPCS: 82274 ==

== ENCOUNTER 2021-12-20 10:17 | Emergency (ER) | payer OTHER, SELFPAY ==
[2021-12-20 10:18] VITALS: BP 127/84; PULSE 74; RESP 16; TEMP 36.3; O2SAT 99; BMI 34.4
--- NOTE | 2021-12-20 10:52 | RAD_ITS ---
STUDY: X-RAY - RIGHT ANKLE REASON FOR EXAM: Female, 36 years old. Pain and swelling TECHNIQUE: 3 view(s) of the ankle. COMPARISON: None. FINDINGS: Acute nondisplaced osteochondral transverse fracture in the distal lateral malleolus with soft tissue swelling. Normal visualized distal tibia. Normal medial and lateral malleoli. Normal tibiotalar articulation and ankle mortise. Normal visualized talus and calcaneus. The visualized subtalar, talonavicular, calcaneocuboid and tarsal articulations are normal. RAD/Ankle min 3 Views IMPRESSION: Acute nondisplaced osteochondral fracture of the distal lateral malleolus with soft tissue swelling Electronically Signed: Butch Garcia MD at 11:08 EST ,
--- NOTE | 2021-12-20 10:52 | ED.VIS.LOWEX ---
HPI History of Present Illness Chief Complaint: Lower Extremity Injury Narrative Narrative: 36-year-old female presenting with right ankle pain. She states about 24 hours ago she stepped off of a curb and rolled her right ankle. She states it hurts. She has been having trouble with ambulation. No numbness or tingling. No lacerations or abrasions. No pain anywhere else but the lateral malleolus on the right. [facility] Medical History Anxiety Frequent headaches history of labor and deliveries Home Medications lactobacillus combination no.4 3 billion cell capsule (Probiotic) 3,000 mmu cells PO DAILY 10/16/20 [History Last Taken Unknown] multivitamin 1 tab PO DAILY 10/16/20 [History Last Taken Unknown] ascorbate calcium (vitamin C) 500 mg tablet 500 mg PO DAILY 10/22/21 [History Last Taken Unknown] cholecalciferol (vitamin D3) 25 mcg (1,000 unit) capsule 25 mcg PO DAILY 10/22/21 [History Last Taken Unknown] carboxymethylcellulose-citric acid 0.75 gram capsule (Plenity (Welcome Kit)) 3 cap PO BID #540 caps 12/01/21 [Rx Last Taken Unknown] hydrocodone-acetaminophen 5-325mg 5mg-325mg 1 tab PO Q6H PRN pain 3 days #10 tabs 12/20/21 [Rx Last Taken Unknown] sertraline 50 mg tablet 75 mg PO QDAY anxiety 12/20/21 [History Last Taken Unknown] Allergy/AdvReac Type Severity Reaction Status Date / Time No Known Allergies Allergy Verified 12/20/21 10:20 Family History Mother Anxiety and depression Father Anxiety and depression Myocardial infarction, Onset Age: 60 Alcoholism Brother Anxiety and depression Grandmother Breast cancer Grandfather Dementia Grandmother Diabetes Surgical History H/O wisdom tooth extraction History of cholecystectomy Social History Smoking Status: Never smoker alcohol intake: current alcohol intake frequency: holidays/special occasions only Alcohol type: wine substance use type: does not use what type of physical activity do you participate in: none ROS ROS ED Constitutional Constitutional ED: Denies chills or fever(s) Eyes Eyes: Denies change in vision or diplopia ENT ENT ED: Denies rhinorrhea or sore throat Cardiovascular Cardiovascular: Denies chest pain or palpitations Respiratory/Chest Respiratory/Chest: Denies cough or dyspnea Gastrointestinal Gastrointestinal: Denies abdominal pain or constipation Genitourinary Genitourinary ED: Denies dysuria or hematuria Musculoskeletal Musculoskeletal: Reports other Details: Right ankle pain ; Denies arthralgias or back pain Integumentary Denies abscess or Abrasions Neurologic Neurologic: Denies headache(s) or paresthesias Psychiatric Psychiatric: Denies anxiety or depression EXAM Physical Exam Const Vital Signs: 12/20/21 10:18 Temperature 97.4 F L Temperature Source Temporal Pulse Rate 74 Respiratory Rate 16 Blood Pressure 127/84 H Blood Pressure Mean 98 Pulse Ox 99 Oxygen Delivery Method Room Air Positive well nourished General Appearance ED: NAD HEENT Reports moist mucous membranes normocephalic and atraumatic Resp normal respiratory effort Cardio regular rate and regular rhythm Extremity Extremity Narrative: Tenderness palpation right lateral malleolus. There are some edema here as well as bruising. No obvious bony deformity. No pain at the fibular head. No foot pain. Neuro Sensorium / Orientation: alert Motor Exam: strength 5/5 throughout Psych mental status grossly normal Skin no wounds MDM MDM MDM Narrative Medical decision making narrative: Patient complaining of right lateral malleolus pain. She rolled her ankle 24 hours ago. She states that Advil is helping for her pain. She does have some swelling and bruising over the right lateral malleolus. We will obtain an x-ray of the right ankle. I interpretation of the x-ray of the right ankle shows a nondisplaced distal lateral malleolus fracture. Radiologist interprets this and agrees. I spoke with Dr. Blair who felt a walking boot and crutches will be sufficient. Patient states that ibuprofen has been fine for her but I did give her a prescription for [place] just in case she has breakthrough pain. She will follow-up with Dr. Blair outpatient. She discharged home in stable condition. Impression: 1. Right ankle Lab Data Attestation: I reviewed the patient's lab results. Radiography Diagnostic Testing: Clinical Impression(s) from Imaging Studies Ankle X-Ray 12/20/21 10:52 IMPRESSION: Acute nondisplaced osteochondral fracture of the distal lateral malleolus with soft tissue swelling Electronically Signed: Butch Garcia MD at 11:08 EST , Discharge Plan Triage Chief Complaint: Lower Extremity Injury ED Provider: Germán Squires Dx/Rx/DC Orders Instructions: ED Ankle Fracture, Distal Fibula Prescriptions: New hydrocodone-acetaminophen 5-325 mg tablet 1 tab PO Q6H PRN (Reason: pain) 3 Days Qty: 10 0RF No Action multivitamin Tablet 1 tab PO DAILY Probiotic 3 billion cell capsule 3,000 mmu cells PO DAILY Rx Instructions: administer with a meal ascorbate calcium (vitamin C) 500 mg tablet 500 mg PO DAILY cholecalciferol (vitamin D3) 25 mcg (1,000 unit) capsule 25 mcg PO DAILY sertraline 50 mg tablet 75 mg PO QDAY Plenity (Welcome Kit) 0.75 gram capsule 3 cap PO BID Qty: 540 0RF Rx Instructions: administer before lunch and evening meal/dinner Primary Care Provider: Tiffanie Hou Referrals: Tiffanie Hou MD [Primary Care Provider] - Stevie Blair DPM [Med Staff - Active Staff] - 3-5 Days Disposition Disposition: Home, Self Care
== END 2021-12-20 12:10 | disposition home or self-care (01) ==
PROVIDERS: Emergency Provider Student in an Organized Health Care Education/Training Program; PCP Internal Medicine; Visit Provider Student in an Organized Health Care Education/Training Program
DX: S82.66XA Nondisplaced fracture of lateral malleolus of unspecified fibula, initial encounter for closed fracture (principal); F41.9 Anxiety disorder, unspecified; X50.1XXA Overexertion from prolonged static or awkward postures, initial encounter; Y92.89 Other specified places as the place of occurrence of the external cause
CPT/HCPCS: 73610; 99283

== ENCOUNTER → 2022-08-06 | Outpatient (CLI) | payer OTHER, SELFPAY ==
[2022-08-06 12:32] LABS: Absolute Neutrophil Count 4.8 X10^3/uL (2.0-7.7); Basophil# 0.05 X10^3/uL; Basophil% 0.7 % (0-1); Eosinophil# 0.05 X10^3/uL; Eosinophils% 0.7 % (0-5); Hematocrit 41.7 % (37-47); Hemoglobin 13.5 g/dL (12.0-15.0); Lymphocyte % 24.8 % (19-41); Mean Corp Hgb Conc 32.4 g/dL (32-36); Mean Corpuscular Hgb 28.8 pg (27.0-32.0); Mean Corpuscular Volume 88.9 fL (81-99); Mean Platelet Vol. 10.7 fl (6.2-12.0); Monocyte# 0.51 X10^3/uL; NRBC Flagged by Analyzer 0 % (0-5); Neutrophil # 4.84 X10^3/uL (2.7-7.7); Neutrophil % 66.7 % (47-70); Platelet Count 421 K/mm3 (150-450); RBC Distribution Width CV 12.9 % (11.6-14.6); RBC Distribution Width SD 41.6 fl (35.1-43.9); Red Blood Count 4.69 M/mm3 (4.2-5.4); White Blood Count 7.3 K/mm3 (4.4-11.0)
[2022-08-06 12:48] LABS: ALB/GLOB Ratio 1.2 RATIO (0.9-2.4); AST(SGOT) 23 U/L (15-37); Alanine Aminotransfer ALT/SGPT 33 U/L (13-56); Albumin, Serum 3.8 g/dL (3.2-5.0); Alkaline Phosphatase 89 U/L (45-117); Anion Gap 2 (5-15); BUN 11 mg/dL (7-18); BUN/Creat Ratio 17.4 RATIO (10-20); Calcium,Total 9.4 mg/dL (8.5-10.1); Chloride 106 mmol/L (98-107); Cholesterol 158 mg/dL (200); Creatinine, Serum 0.63 mg/dL (0.55-1.02); EST Glomerular Filtration Rate 111 mL/min (>60); Est Glom Filt Rate - Afr Amer 135 mL/min (>60); Globulin 3.3 g/dL (2.2-4.2); Glucose 90 mg/dL (74-106); High Density Lipoprotein 61 mg/dL; Potassium 4.8 mmol/L (3.5-5.1); Protein, Total 7.1 g/dL (6.4-8.2); Sodium Level 138 mmol/L (136-145); Triglycerides 145 mg/dL; Very Low Density Lipoprotein 29 mg/dL (5-40)
== END | disposition home or self-care (01) ==
LOC: BIMLAB 11:10
PROVIDERS: PCP Internal Medicine; Referring Provider Internal Medicine; Visit Provider Internal Medicine
DX: Z00.00 Encounter for general adult medical examination without abnormal findings (principal)
CPT/HCPCS: 36415; 80053; 80061; 85025

== ENCOUNTER → 2024-01-18 | Outpatient (CLI) | payer OTHER, SELFPAY ==
[2024-01-18 16:32] LABS: Absolute Lymphocyte Count 2.05 X10^3/uL (0.83-4.51); Absolute Neutrophil Count 5.1 X10^3/uL (2.0-7.7); Basophil# 0.04 X10^3/uL; Basophil% 0.5 % (0-1); Eosinophil# 0.13 X10^3/uL; Eosinophils% 1.6 % (0-5); Hematocrit 38.8 % (37-47); Hemoglobin 12.8 g/dL (12.0-15.0); Lymphocyte # 2.05 X10^3/ul (0.83-4.51); Lymphocyte % 25.5 % (19-41); Mean Corpuscular Hgb 28.1 pg (27.0-32.0); Mean Corpuscular Volume 85.1 fL (81-99); Mean Platelet Vol. 10.1 fl (6.2-12.0); Monocyte# 0.69 X10^3/uL; Monocyte% 8.6 % (0-10); NRBC Flagged by Analyzer 0 % (0-5); Neutrophil # 5.12 X10^3/uL (2.7-7.7); Neutrophil % 63.6 % (47-70); Platelet Count 456 K/mm3 (150-450); RBC Distribution Width CV 12.7 % (11.6-14.6); RBC Distribution Width SD 39.2 fl (35.1-43.9); Red Blood Count 4.56 M/mm3 (4.2-5.4); White Blood Count 8.1 K/mm3 (4.4-11.0)
[2024-01-18 17:06] LABS: ALB/GLOB Ratio 0.9 RATIO (0.9-2.4); AST(SGOT) 18 U/L (15-37); Alanine Aminotransfer ALT/SGPT 35 U/L (13-56); Albumin, Serum 3.7 g/dL (3.2-5.0); Alkaline Phosphatase 114 U/L (45-117); Anion Gap 7 (5-15); BUN 18 mg/dL (7-18); BUN/Creat Ratio 28.5 RATIO (10-20); Calcium,Total 9.1 mg/dL (8.5-10.1); Chloride 104 mmol/L (98-107); Cholesterol 163 mg/dL (200); Creatinine, Serum 0.63 mg/dL (0.55-1.02); EST Glomerular Filtration Rate 111 mL/min (>60); Est Glom Filt Rate - Afr Amer 134 mL/min (>60); Glucose 90 mg/dL (74-106); High Density Lipoprotein 56 mg/dL; Potassium 3.8 mmol/L (3.5-5.1); Protein, Total 7.7 g/dL (6.4-8.2); Sodium Level 137 mmol/L (136-145); Triglycerides 129 mg/dL; Very Low Density Lipoprotein 26 mg/dL (5-40)
== END | disposition home or self-care (01) ==
LOC: BIMLAB 15:22
PROVIDERS: PCP Internal Medicine; Referring Provider Internal Medicine; Visit Provider Internal Medicine
DX: Z13.29 Encounter for screening for other suspected endocrine disorder (principal); Z13.6 Encounter for screening for cardiovascular disorders; F41.9 Anxiety disorder, unspecified; F32.9 Major depressive disorder, single episode, unspecified
CPT/HCPCS: 36415; 80053; 80061; 84443; 85025

== ENCOUNTER → 2024-05-24 | Outpatient (CLI) | payer OTHER, SELFPAY ==
[2024-05-24 16:32] LABS: Absolute Lymphocyte Count 2.51 X10^3/uL (0.83-4.51); Absolute Neutrophil Count 6.1 X10^3/uL (2.0-7.7); Basophil# 0.06 X10^3/uL; Basophil% 0.6 % (0-1); Eosinophil# 0.12 X10^3/uL; Eosinophils% 1.2 % (0-5); Hematocrit 39.2 % (37-47); Hemoglobin 13.1 g/dL (12.0-15.0); Lymphocyte # 2.51 X10^3/ul (0.83-4.51); Lymphocyte % 26.1 % (19-41); Mean Corp Hgb Conc 33.4 g/dL (32-36); Mean Corpuscular Hgb 28.5 pg (27.0-32.0); Mean Corpuscular Volume 85.2 fL (81-99); Mean Platelet Vol. 10.2 fl (6.2-12.0); Monocyte# 0.78 X10^3/uL; Monocyte% 8.1 % (0-10); NRBC Flagged by Analyzer 0 % (0-5); Neutrophil # 6.12 X10^3/uL (2.7-7.7); Neutrophil % 63.8 % (47-70); Platelet Count 465 K/mm3 (150-450); RBC Distribution Width CV 12.8 % (11.6-14.6); RBC Distribution Width SD 39.7 fl (35.1-43.9); White Blood Count 9.6 K/mm3 (4.4-11.0)
[2024-05-24 17:07] LABS: ALB/GLOB Ratio 1.4 RATIO (0.9-2.4); AST(SGOT) 30 U/L (<=31); Alanine Aminotransfer ALT/SGPT 36 U/L (<=34); Albumin, Serum 4.5 g/dL (3.5-5.0); Alkaline Phosphatase 112 U/L (35-104); Anion Gap 12 (5-15); BUN 16 mg/dL (4-19); BUN/Creat Ratio 24.3 RATIO (10-20); Calcium,Total 9.8 mg/dL (7.6-11.0); Carbon Dioxide 23.9 mmol/L (21.0-32.0); Chloride 101 mmol/L (98-108); Creatinine, Serum 0.64 mg/dL (0.70-1.20); EST Glomerular Filtration Rate 115 (>60); Globulin 3.4 g/dL (2.2-4.2); Glucose 96 mg/dL (70-99); Potassium 4.1 mmol/L (3.3-5.1); Protein, Total 7.9 g/dL (5.9-8.4); Sodium Level 137 mmol/L (133-145); Total Bilirubin 0.24 mg/dL (0.00-1.30)
== END | disposition home or self-care (01) ==
LOC: BIMLAB 15:51
PROVIDERS: PCP Internal Medicine; Referring Provider Internal Medicine; Visit Provider Internal Medicine
DX: F41.9 Anxiety disorder, unspecified (principal); E66.9 Obesity, unspecified
CPT/HCPCS: 36415; 80053; 85025